=== PATIENT | female | born 1995 ===

== ENCOUNTER 2022-08-14 06:03 | Emergency (ER) | payer OTHER ==
[~2022-08-14] VITALS: Ht 152.4 cm; Wt 81.8 kg
[2022-08-14] MEDS ORDERED: KETOROLAC TROMETHAMINE 30 MG/ML VIAL IM ONE (07:15)
[2022-08-14] MEDS ORDERED: IBUP-1492 PO (07:33)
[2022-08-14 07:45] VITALS: BP 125/88
== END 2022-08-14 07:54 | disposition home or self-care (01) ==
LOC: EMS 06:07
DX: S83.92XA Sprain of unspecified site of left knee, initial encounter (principal); X58.XXXA Exposure to other specified factors, initial encounter; Y93.89 Activity, other specified; Y92.89 Other specified places as the place of occurrence of the external cause; Y99.8 Other external cause status
CPT/HCPCS: 99283; 73562; 96372; J1885